=== PATIENT | female | born 1960 | race Caucasian/White ===

== ENCOUNTER → 2019-04-17 | Outpatient (CLI) | payer BC ==
[~2019-04-17] MED LIST: CETI10TA22 PO; CHOL200078 PO; CONTRAST GIVEN MC PRN; FLUT9.9S NS; GUAI600T47 PO; IOHEXOL 300 MG/ML 75 ML VIAL. IV ONE; LACT1CAP6 PO; MELA3TAB56 PO; NAPR220C4 PO; OXYB5TAB33 PO; TURM500C4 PO
--- NOTE | 2019-04-17 16:28 | RAD ---
Exam: CT of chest with contrast INDICATION: Pneumonia TECHNIQUE: Sequential axial images through the chest obtained following the administration of 75 mL of Omni 300 IV contrast. Sagittal and coronal reformatted images were reconstructed from the axial data and reviewed. Comparisons: None FINDINGS: Visualized portions of the thyroid are unremarkable. No enlarged mediastinal lymph nodes are identified. Heart size is normal. No pericardial effusion. Thoracic aorta has a normal course and caliber. Pulmonary artery is not enlarged. Airways are patent. No consolidation or pneumothorax. There is tree-in-bud unless nodularity noted within the right and left upper lobes and to a lesser extent the left lower lobe. No pleural effusion or thickening. Visualized upper abdomen is unremarkable. No suspicious osseous lesions or acute fractures. IMPRESSION: Groundglass tree-in-bud nodularity in the right and left upper lobes, most commonly associated with infective bronchiolitis. Exposure: One or more of the following in the visualized dose reduction techniques were utilized for this examination: 1. Automated exposure control 2. Adjustment of the MA and/or KV according to patient size 3. Use of iterative of reconstructive technique Electronically signed by: Megha Witt MD (04/17/2019 4:26 PM) [email or web address]
== END | disposition home or self-care (01) ==
LOC: CT 15:22
PROVIDERS: ATTEND Physician Assistant
DX: J21.8 Acute bronchiolitis due to other specified organisms (principal); J17 Pneumonia in diseases classified elsewhere; R50.81 Fever presenting with conditions classified elsewhere; Z72.0 Tobacco use
CPT/HCPCS: 71260; Q9967

== ENCOUNTER 2019-04-20 17:34 | Inpatient (IN) | payer BC ==
[~2019-04-20] VITALS: Ht 162.6 cm; Wt 59.9 kg
[2019-04-20 18:02] VITALS: BP 113/74
[2019-04-20 18:23] LABS: BASO % 0 % (0-3); EOS # 0.2 x10^3/uL (0.0-0.7); EOS % 4 % (0-3); HEMATOCRIT 38.2 % (36.0-47.0); HEMOGLOBIN 12.7 g/dL (12.0-15.5); LYMPH # 1.1 x10^3/uL (1.0-4.8); LYMPH % 19 % (24-48); MEAN CORPUSCULAR HEMOGLOBIN 29 pg (25-35); MEAN CORPUSCULAR HGB CONC 33 g/dL (31-37); MEAN CORPUSCULAR VOLUME 89 fL (79-100); MONO # 0.7 x10^3/uL (0.0-1.1); MONO % 11 % (0-9); NEUT % 66 % (31-73); PLATELET COUNT 247 x10^3/uL (140-400); RED BLOOD COUNT 4.31 x10^6/uL (3.50-5.40); RED CELL DISTRIBUTION WIDTH 13.1 % (11.5-14.5); WHITE BLOOD COUNT 6.1 x10^3/uL (4.0-11.0)
[2019-04-20] MEDS ORDERED: ZOLPIDEM 5 MG TABLET. PO PRN (18:30)
[2019-04-20] MEDS ORDERED: PIP/TAZO PER PHARMACY MC PRN (18:30)
[2019-04-20] MEDS ORDERED: NAPR220C4 PO (18:33)
[2019-04-20] MEDS ORDERED: TURM500C4 PO (18:33)
[2019-04-20] MEDS ORDERED: OXYB5TAB33 PO (18:33)
[2019-04-20] MEDS ORDERED: CETI10TA22 PO (18:33)
[2019-04-20] MEDS ORDERED: CHOL200078 PO (18:33)
[2019-04-20] MEDS ORDERED: LACT1CAP6 PO (18:33)
[2019-04-20] MEDS ORDERED: FLUT9.9S NS (18:33)
[2019-04-20 18:36] LABS: ALBUMIN 3.5 g/dL (3.4-5.0); CALCIUM 8.3 mg/dL (8.5-10.1); CREATININE 0.5 mg/dL (0.6-1.0); GFR 127.2; POTASSIUM 3.4 mmol/L (3.5-5.1); TOTAL BILIRUBIN 0.3 mg/dL (0.2-1.0)
[2019-04-20] MEDS ORDERED: GUAI600T47 PO (19:47)
[2019-04-20] MEDS: IPRATRPIUM/ALBUTEROL 0.5/2.5MG 3 ML NEBU. NEB SCH (20:41)
[2019-04-20] MEDS: PIPERACILLIN/TAZOBACTAM 3.375 GM in IV NORMAL SALINE 50ML 50 ML IV SCH (20:48)
[2019-04-20] MEDS: LACTOBACILLUS RHAMNOSUS GG 1 CAPSULE. PO SCH (20:49)
[2019-04-20 22:20] VITALS: BP 109/75
[2019-04-21] MEDS: PIPERACILLIN/TAZOBACTAM 3.375 GM in IV NORMAL SALINE 50ML 50 ML IV SCH ×4 (02:15→20:28)
[2019-04-21] MEDS: IPRATRPIUM/ALBUTEROL 0.5/2.5MG 3 ML NEBU. NEB SCH ×3 (05:10→22:24)
[2019-04-21 05:24] VITALS: BP 106/68
[2019-04-21] MEDS ORDERED: MELA3TAB56 PO (06:46)
[2019-04-21] MEDS: LACTOBACILLUS RHAMNOSUS GG 1 CAPSULE. PO SCH ×2 (07:46→20:28)
[2019-04-21] MEDS: methylPREDNISolone SOD SUCC PF 40 MG/ML VIAL. IV SCH ×2 (09:36→20:28)
[2019-04-21 10:13] VITALS: BP 108/69
[2019-04-21 15:28] VITALS: BP 111/63
[2019-04-21 19:37] VITALS: BP 104/62
[2019-04-21] MEDS ORDERED: MELATONIN 3 MG TABLET PO PRN (19:45)
[2019-04-21 22:40] VITALS: BP 106/68
--- NOTE | 2019-04-22 01:17 | PN ---
DATE: SUBJECTIVE: The patient admitted with pneumonia, has been failed as an outpatient. The patient is resting fairly comfortably, still having some trouble breathing, but markedly improved. The patient is alert and oriented. Pulse still over 100 and 115. OBJECTIVE: VITAL SIGNS: Blood pressure 110/60, respiratory rate 18, temperature 98. GENERAL: The patient is alert and oriented. LUNGS: Diminished, but clear than they have been. CARDIOVASCULAR: Regular sinus rhythm. IMPRESSION: Pneumonia of unspecified etiology, community acquired as well as that of acute exacerbation of asthma. The patient's PCR from the office demonstrated Streptococcus pneumoniae and Staphylococcus aureus in her sputum. PLAN: Continue with IV antibiotic therapy for now and will adjust accordingly. MATIAS COSTELLO MD DR: DUARTE/nts JOB#: [id number] / [id number]
[2019-04-22] MEDS: PIPERACILLIN/TAZOBACTAM 3.375 GM in IV NORMAL SALINE 50ML 50 ML IV SCH ×2 (02:50→08:32)
[2019-04-22 05:27] VITALS: BP 115/64
[2019-04-22] MEDS ORDERED: POTASSIUM CHLORIDE 20 MEQ TABLET.ER. PO ONE (07:45)
[2019-04-22] MEDS: methylPREDNISolone SOD SUCC PF 40 MG/ML VIAL. IV SCH (08:32)
[2019-04-22] MEDS: LACTOBACILLUS RHAMNOSUS GG 1 CAPSULE. PO SCH (08:32)
[2019-04-22] MEDS ORDERED: PRED-220 PO (10:46)
[2019-04-22] MEDS ORDERED: CEFD300C PO (10:46)
--- NOTE | 2019-04-22 12:00 | DS ---
DATE OF DISCHARGE: HOSPITAL COURSE: The patient is a 58-year-old female who for last 3-4 weeks has been ill with cough, fever and congestion, shortness of breath. She had become increasingly weakened by the situation. The patient was thought to have some infectious process. Her PCR did grow out Streptococcus pneumoniae, Staphylococcus aureus and also she was detected for a parainfluenza virus 4. The patient made good progress during the rest of her hospitalization. She was given IV antibiotic therapy, low dose steroids, breathing treatments, and she made excellent progress, apparently throwing off this month long infection. The patient was discharged home. She will be on tapering doses of prednisone, see [facility]AD as well as antibiotics. IMPRESSION: Therefore of pneumonia caused by Streptococcus pneumoniae, also complicated with Staphylococcus aureus and Human parainfluenza virus 4. See MRAD. Decreased activity. Followup accordingly. No smoking and she will follow up in 7-10 days or sooner as needed. MATIAS COSTELLO MD DR: DUARTE/maria t JOB#: [id number] / [id number]
== END 2019-04-22 11:40 | disposition home or self-care (01) | DRG 202 ==
LOC: 1 SOUTH 17:34
PROVIDERS: ADMIT Family Medicine; ATTEND Family Medicine
DX: J45.901 Unspecified asthma with (acute) exacerbation (principal); J18.9 Pneumonia, unspecified organism; B95.3 Streptococcus pneumoniae as the cause of diseases classified elsewhere; B34.8 Other viral infections of unspecified site; Z88.2 Allergy status to sulfonamides; Z88.8 Allergy status to other drugs, medicaments and biological substances; Z91.040 Latex allergy status
CPT/HCPCS: 36415; 71260; 80053; 83605; 85025; 85379; 87040; 94640; 94760; J1956; J2543; J2920; J7620; Q9967